=== PATIENT | female | born 1945 | race Caucasian/White ===

== ENCOUNTER 2017-05-11 08:39 | Day surgery (SDC) | payer MEDICARE, MEDICAID ==
[~2017-05-11 08:39] MED LIST: ALBUTEROL2 PUFFS/17 IN; ANTIVERT GENERI25 MG PO; CIPRO 500MG TA500 MG PO; HYDROCHLOROTH12.5 M1 PO; LORTAB 5/500 501 TAB PO; LORTAB ELIXIR473 ML PO; METOPROLOL25 MG PO; PHENERGAN 25MG.25 MG PR; PRILOSEC20 MG PO; PRINIVIL5 MG PO; VOLTAREN75 MG PO; XANAX 1MG TABLET1 MG PO
[2017-05-11 11:17] VITALS: BP 152/64
== END 2017-05-11 12:00 | disposition home or self-care (01) ==
LOC: SDC 08:39
PROVIDERS: Ophthalmology
PROC: 08RK3JZ Replacement of Left Lens with Synthetic Substitute, Percutaneous Approach (ICD-10-PCS; principal; 2017-05-11 12:00)
DX: H26.9 Unspecified cataract (principal)
CPT/HCPCS: V2632